=== PATIENT | female | born 1950 | race Two or more races ===

== ENCOUNTER 2024-07-09 09:36 | Day surgery (SDC) | payer OTHER, MEDICAID ==
[2024-07-02 14:52] LABS: Urine Bacteria None Seen /hpf (None Seen)
[2024-07-02 15:02] LABS: Basophils # (auto) 0 10 ^3/uL (0-0.2); Basophils % (auto) 0.2 % (0.0-2.0); Eosinophils # (auto) 0 10 ^3/uL (0-0.8); Eosinophils % (auto) 0.2 % (0.0-7.0); Hematocrit 41.4 % (36.0-46.0); Hemoglobin 13.7 g/dL (12.2-16.2); Lymphocytes # (auto) 1.9 10 ^3/uL (0.4-5.4); Lymphocytes % (auto) 48.1 % (10.0-50.0); Mean Corpuscular Hemoglobin 31.2 pg (28.0-32.0); Mean Corpuscular Volume 94.4 fL (80.0-100.0); Monocytes # (auto) 0.5 10 ^3/uL (0-1.3); Monocytes % (auto) 12.9 % (0.0-12.0); Neutrophils # (auto) 1.5 10 ^3/uL (1.6-8.6); Neutrophils % (auto) 38.6 % (37.0-80.0); Nucleated Red Blood Cells % 0.1 %; Platelet Count (auto) 267 10^3/uL (140-450); Red Blood Cells 4.39 10^6/uL (4.0-5.20); Red Cell Distribution Width 13.8 % (11.8-14.3); White Blood Cell 3.9 10^3/uL (4.4-10.8)
[2024-07-02 15:06] LABS: Urine Blood Negative /uL (Negative); Urine Clarity Clear (Clear); Urine Color Yellow (Yellow); Urine Hyaline Cast FEW /lpf (0 - 2); Urine Mucus FEW (None Seen); Urine Protein, UAD TRACE (Negative); Urine Specific Gravity 1.033 (1.001-1.035); Urine Squamous Epithelial Cell FEW /hpf (<5); Urine Urobilinogen 4 mg/dL (Negative); Urine WBC 2 /HPF (0-5); Urine pH 5.5 (5.0-9.0)
[2024-07-02 15:14] LABS: Alanine Aminotransferase 28 U/L (7-40); Alkaline Phosphatase 66 U/L (46-116); Anion Gap 7 (5-15); Aspartate Aminotransferase 31 U/L (13-40); BUN/Creatinine Ratio 13.5 (10.0-20.0); Bilirubin, Total 0.5 mg/dL (0.2-1.0); Blood Urea Nitrogen 14 mg/dL (9-23); Calcium 9.7 mg/dL (8.7-10.4); Carbon Dioxide 28 mmol/L (20-31); Chloride 107 mmol/L (98-107); Glucose 100 mg/dL (74-106); Potassium 3.7 mmol/L (3.5-5.1); Sodium 142 mmol/L (136-145); Total Protein 7.5 g/dL (5.7-8.2)
[2024-07-02 15:17] LABS: INR 0.96 (0.9-1.15); Partial Thromboplastin Time 25.8 SEC (24.5-34.5); Prothrombin Time 10.2 sec (9.3-11.8)
[~2024-07-09] VITALS: Ht 157.5 cm; Wt 78.9 kg
[~2024-07-09 09:36] MED LIST: AMLO1TAB22 PO; CYCL-838 PO; FOLI-119 PO; HYDR-4798 PO; LEVO25TA6 PO; MECL12.586 PO; OMEP20TA PO; ROPI5TAB20 PO; SIMV10TA20 PO; UPAD15TA PO
[2024-07-09 11:06] VITALS: PULSE 92; RESP 14; TEMP 97.8; O2SAT 94
--- NOTE | 2024-07-09 11:07 | DVHOP2 ---
Operative Report - 2 Report Details Date: 07/09/24 Preop Diagnosis: 1. Right foot 2nd toe hammertoe 2. 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 Right foot pain 4. Right foot neuroma Postop Diagnosis: Same as preop Surgeon: Tim Burns MD Anesthesiologist: See anesthesia Anesthesia: General Implant: arthrex 0.045 K-wire Consent: The patient was informed of the risks and benefits of the procedure. These include but are not limited to complications of anesthesia, postoperative infection, incomplete relief of symptoms, recurrence of symptoms, damage to blood vessels, nerves and tendons, deep venous thrombosis, pulmonary embolism and possible need for repeat surgery in the future. Complications: None Estimated Blood Loss: Minimal Fluids: See anesthesia Findings: Consistent with diagnosis Indications for Surgery: Worsening right foot pain Name of Procedure Performed 1. Right foot 2nd hammer toe repair (75006) 2. Right foot 2nd hammer toe correction of angular deformity (03593) 3. Right foot neuroma injection (71210) Procedure Details Procedure Details: PRE-PROCEDURE INFORMATION: In the pre-op holding area, the extremity to be operated on was clearly marked and the patient verified correct laterality of the marking. The patient was transferred to the OR table and placed in a supine position. A timeout was performed in which identification of the correct patient, procedure, location, and materials was done. The right foot and leg were prepped and draped in normal sterile fashion. DESCRIPTION OF PROCEDURE: Attention was directed to the right 2nd toe where the hammertoe an angular deformities located. A stab incision was made medial to the 2nd toe distal phalanx. Using MIS bur, an osteotomy was performed of the distal phalanx. And release of the extensor tendon was performed at that point. The correction of the the angular deformity was achieved with the osteotomy. The toe was then held in place with a 0.045 K-wire which will be removed in a later date. It was noted on intraoperative clot fluoroscopy that as well as clinically after this hammertoe was corrected that there was no longer contracture about the PIP or DIPJ. The incision was closed with 4-0 nylon. An injection was performed of the right foot neuroma using 1 cc of Kenalog 40. All surgical wounds were irrigated copiously with saline and closed in layers with the aforementioned suture material. A dry sterile dressing was placed on the surgical extremity. The patient was placed in a postop shoe. POSTOPERATIVE INFORMATION: The patient tolerated the above noted procedure and anesthesia well and was transferred to the PACU with vital signs stable, and vascular status intact with capillary refill intact to all digits. Postoperative instructions reviewed in detail with the patient with written instructions provided. Patient will return to clinic in approximately 10-14 days for first postoperative visit. Patient has the number of the clinic and was instructed to call prior to that time should any problems, questions, or concerns arise. Condition Good Disposition Home TIM BURNS DPM Jul 09, 2024 11:07
[2024-07-09] MEDS ORDERED: fentaNYL CITRATE 100 MCG/2 ML VL IV PRN (11:30)
[2024-07-09 11:40] VITALS: BP 123/67; PULSE 95; RESP 95; O2SAT 94
== END 2024-07-09 11:55 | disposition home or self-care (01) ==
LOC: SUR 09:36
PROVIDERS: ATTEND Podiatrist
DX: M20.5X1 Other deformities of toe(s) (acquired), right foot (principal); M20.41 Other hammer toe(s) (acquired), right foot; G57.61 Lesion of plantar nerve, right lower limb; I10 Essential (primary) hypertension; J45.909 Unspecified asthma, uncomplicated; E78.00 Pure hypercholesterolemia, unspecified; Z79.899 Other long term (current) drug therapy; Z98.890 Other specified postprocedural states
CPT/HCPCS: 28285; 36415; 64455; 80053; 81001; 85025; 85610; 85730; C1713